=== PATIENT | female | born 1965 | race Caucasian/White ===

== ENCOUNTER 2018-12-13 07:22 | Day surgery (SDC) | payer BC, OTHER ==
[2018-12-13] MEDS ORDERED: HYDROmorphONE 1 MG/5 ML IV SYRINGE IV (08:30)
[2018-12-13] MEDS ORDERED: ONDANSETRON 4 MG INJ IV (08:30)
[2018-12-13] MEDS ORDERED: LABETALOL HCL 20MG INJ IV (08:30)
[2018-12-13] MEDS ORDERED: hydrALAzine 20 MG INJ IV (08:30)
[2018-12-13] MEDS ORDERED: LIDOCAINE 2% (SDV) 5 ML INJ (08:35)
[2018-12-13] MEDS ORDERED: PROPOFOL 40 ML (08:35)
[2018-12-13] MEDS ORDERED: MIDAZOLAM 1 MG/ML 2 ML INJ (08:42)
[2018-12-13] MEDS ORDERED: PROPOFOL 20 ML (09:09)
== END 2018-12-13 10:42 | disposition home or self-care (01) ==
LOC: GIL 07:22
DX: K29.70 Gastritis, unspecified, without bleeding (principal); K57.30 Diverticulosis of large intestine without perforation or abscess without bleeding; D12.0 Benign neoplasm of cecum; K20.8 Other esophagitis; I10 Essential (primary) hypertension; E11.9 Type 2 diabetes mellitus without complications; E03.9 Hypothyroidism, unspecified
CPT/HCPCS: 43239; 82962; 88305